=== PATIENT | male | born 1980 | race Asian ===

== ENCOUNTER 2024-10-20 08:53 | Outpatient (REF) | payer MEDICAID, OTHER, SELFPAY ==
--- NOTE | ~2024-10-20 | CT_ITS ---
CLINICAL HISTORY: lung nodule CT chest with contrast Comparison: None Findings: The heart is normal size. The visualized thyroid and mediastinum are unremarkable. No consolidation or effusion. There is a calcified granuloma of the left lower lobe. 3.5 mm noncalcified nodule of the left lower lobe series 4, image 109. The visualized upper abdomen is unremarkable. The bones are intact. IMPRESSION: Small left lower lobe pulmonary nodule. Fleischner Society 2017 Guidelines for incidentally detected indeterminate nodules in persons 35 years of age or older. Single Solid Nodules: 5 mm or smaller nodules need no follow-up in low risk, and [address] follow-up is optional in high risk patients. 6-8 mm nodules have optional [address] follow-up in low risk, and 6-[address] follow-up followed by 18-[address] follow-up if no change in high risk patients. 9 mm or larger nodules should consider CT, PET/CT, or biopsy at 3 months regardless of patient risk. Multiple Solid Nodules: 5 mm or smaller nodules need no follow-up in low risk, and [address] follow-up is optional in high risk patients. 6-8 mm nodules need 3-[address] follow-up followed by an optional 18-[address] follow-up regardless of patient risk. 9 mm or larger nodules should consider 3-[address] follow-up. For low risk 18-24 month follow-up is optional, whereas for high risk it is needed. Single Ground Glass Nodules: 5 mm or smaller nodules need no followup 6 mm and larger nodules need CT at 6-12 months to confirm persistence, then CT every 2 years until 5 years Single Subsolid Nodules: 5 mm or smaller nodules need no followup 6 mm and larger nodules need CT at 3-6 months to confirm persistence. If no change and solid component /T/lt;6 mm, then CT every year until 5 years Multiple Ground Glass or Subsolid Nodules: 5 mm or smaller nodules need CT at 3-6 months. If stable, optional CT at 2 and 4 years. 6 mm or larger nodules need CT at 3-6 months. Subsequent management based on most suspicious nodule This document has been electronically signed by: Ayad Farrell MD on 10/20/2024 14:30:15
[2024-10-20] MEDS: iohexoL 350 MG/ML 100 ML INFUS..BTL IV (09:49)
--- OUTSIDE RECORDS SUMMARY | 2024-10-20 09:51 | XMS_ITS | Clinical Summary ---
Author Organization [employer] Address [address] [facility] 7[address] [place] [address] Care Team Providers Care Choker Hooker Name Role Phone Andrés Richter MD Primary Care Prov ider Allergies No known active allergies Medications No known medications Active Problems Problem Noted Date Diagnosed Date Dental caries 08/26/2024 Open fracture of tooth 08/26/2024 Encounter for medical examination to establish c are 08/23/2024 Assessment & Plan (08/23/2024 12:40 PM EST): Last seen by pcp in April on Mobile No hx of hospitalization No er visit on the past year Pmhx: - Pshx: - All:- Meds:- Lung nodule 08/23/2024 Assessment & Plan (08/23/2024 12:41 PM EST): Incidental lung nodule found on ct scan done in [place] 4 months ago, he refers was told was 5mm, no suspucion for cancer was notified, will order a new low dose chest ct scan will be ordered Encounters Date Type Department Care Team Description 09/30/2024 4:00 PM EST Office Visit [facility] MED & PEDS [address], [place] [phone] Chantale Cope MD URI, acute (Primary Dx); COVID-19 09/30/2024 Travel 09/30/2024 Telephone [facility] MEDICINE [address] [place] [address] Andrés Richter MD Nurse Triage 08/27/2024 Telephone [facility] MED & PEDS [address], [place] [phone] Andrés Richter MD 08/26/2024 8:00 AM EST Office Visit [facility] ADULT DENTAL [address] [place] [address] Quintin Alcazar DDS Dental caries (Primary Dx); Open fracture of tooth, sequela 08/25/2024 Orders Only [facility] MED & PEDS [address] [place] [address] Andrés Richter MD Lung nodule (Primary Dx) 08/23/2024 10:45 AM EST Telemedicine [facility] MED & PEDS [address] [place] [address] Andrés Richter MD Encounter for medical examination to establish care (Primary Dx); Lung nodule 08/23/2024 Travel 08/11/2024 Telephone [facility] MED & PEDS [address] [place] [address] Marina Bosch MA chart prep 08/09/2024 8:00 AM EST Office Visit [facility] ADULT DENTAL [address] [place] [address] Herb Manning 08/02/2024 Telephone [facility] MED & PEDS [address] [place] [address] Andrés Richter MD No Show 08/02/2024 Telephone [facility] MED & PEDS [address] [place] [address] Marina Bosch MA 08/02/2024 Travel from Last 3 Months Family History Medical History Relation Name Comments No Known Problems Father Hypertension Mother Cancer Neg Hx Relation Name Status Comments Father Mother Social History Tobacco Use Types Packs/Day Years Used Date Smoking Tobacco: Never Passive Smoke Exposure: Never Smokeless Tobacco: Never Tobacco Cessation:Counseling Given: Not Answered Alcohol Use Standard Drinks/Week Comments Never 0 (1 standard drink = 0.6 oz pur e alcohol) Sex and Gender Information Value Date Recorded Sex Assigned at Male 05/13/2024 4:21 PM EDT Legal Sex Male 4:20 PM EDT Gender Identity Male 06/22/2024 3:34 PM EDT Sexual Orientation Straight 06/22/2024 3: 34 PM EDT Last Filed Vital Signs Vital Sign Reading Time Taken Comments Blood Pressure 108/70 09/30/2024 4:18 PM EST Pulse 74 09/30/2024 4:18 PM EST Temperature 36.1 ??C (97 ??F) 09/30/2024 4:18 PM EST Respiratory Rate 20 09/30/2024 4:18 PM EST Oxygen Saturation 99% 09/30/2024 4:18 PM EST Inhaled Oxygen Concentration - - Weight 63.5 kg (140 lb) 09/30/2024 4:18 PM EST Height - - Body Mass Index - - Plan of Treatment Health Maintenance Due Date Last Done Comments Depression Screening 1981 HIV Screening 1981 Lipid Panel 1981 SDOH Screening 1981 Alcohol/Substance Use Screening 1993 Family Planning (PISQ) 1996 Hepatitis C Screening 1999 DTaP/Tdap/Td Vaccines (1 - Tdap) 2000 Hepatitis B Vaccines (1 of 3 - 19+ 3-dose series) 2000 COVID-19 Vaccine ( - 2023-2 5 season) 2024 Influenza Vaccine (#1) 2024 Dental Oral Exam 01/13/2025 07/15/2024 Dental Prophylaxis 02/08/2025 08/09/2024 Dental X-Ray: Bitewings 07/16/2025 07/15/2024 Tobacco Screening 09/30/2025 09/30/2024 Dental X-Ray: Full Mouth 07/16/2027 07/15/2024 Zoster Vaccines (1 of 2) 2031 RSV Patients and Pa tients Aged 60 years or older (1 - 1-dose 75+ series) 2056 HIB Vaccines Aged Out No longer eligi ble based on patient's age to complete this topic HPV Vaccines Aged Out No longer eligi ble based on patient's age to complete this topic Hepatitis A Vaccines Aged Out No long er eligible based on patient's age to complete this topic IPV Vaccines Aged Out No longer eligi ble based on patient's age to complete this topic Meningococcal Vaccine Aged Out No lupillo maria teresa eligible based on patient's age to complete this topic Pneumococcal Vaccine: Pediat rics (0 to 5 Years) and At-Risk Patients (6 to 49) Years) Aged Out No longer elig ible based on patient's age to complete this topic RSV under 20 months Aged Out No longe r eligible based on patient's age to complete this topic Rotavirus Vaccines Aged Out No longer eligible based on patient's age to complete this topic Procedures Procedure Name Priority Date/Time Associated Diagnosis Comments POCT INFLUENZA B Routine 09/30/2024 4:38 PM EST URI, acute POCT INFLUENZA A Routine 09/30/2024 4:37 PM EST URI, acute POCT RAPID COVID ANTIGEN Routine 09/30/2024 4:37 PM EST URI, acute [employer] GENERAL SERVICES - PROFESSIONAL VISITS - CASE PRESENTATION, SUBSEQUENT TO DETAILED AND EXTENSIVE TREATMENT PLANNING Routine 08/26/2024 8:00 AM EST 16 EXTRACTION, ERUPTED TOOTH OR EXPOSED ROOT (ELEVATION AND/OR FORCEPS REMOVAL) Routine 08/26/2024 8:00 AM EST PROPHYLAXIS - ADULT Routine 08/09/2024 8 :00 AM EST DIAGNOSTIC - DIAGNOSTIC IMAGING - INTRAORAL - COMPREHENSIVE SERIES OF RADIOGRAPHIC IMAGES Routine 07/15/2024 8:00 AM EST COMPREHENSIVE ORAL EVALUATION - NEW OR ESTABLISHED PATIENT Routine 07/15/2024 8:00 AM EST from Last 3 Months or Most Recently Relevant to Health Maintenance Results * POCT Rapid Influenza B OSOM (09/30/2024 4:38 PM EST) Pathologist [facility] Rapid Influenza B Ag Negative Negative, Indeterminate Swab 09/30/2024 4:38 PM EST Chantale Cope MD POINT OF CARE TEST ENTER/EDIT ORDERABLES Final Result * (ABNORMAL) POCT Rapid Covid-19 BinaxNOW (09/30/2024 4:37 PM EST) Rapid COVID Ag Positive Comment:internal contols pas sed QC Media Lot # [id number] Lot# Expiration Date [id number] Swab 09/30/2024 4:37 PM EST Chantale Cope MD POINT OF CARE TEST ENTER/EDIT ORDERABLES Final Result * POCT Rapid Influenza A OSOM (09/30/2024 4:37 PM EST) Rapid Influenza A Ag Negative Negative, Indeterminate Swab Nasopharyngeal structure / Unknown 09/30/2024 4:37 PM EST Chantale Cope MD POINT OF CARE TEST ENTER/EDIT ORDERABLES Final Result from Last 3 Months Insurance [facility] LIMITED HSN FULL DENTAL-[facility] MEDICAID LIMITED ADULT DENTAL - HSN FULL (MEDICAID) Care Teams Choker Hooker Relationship Specialty Start Date End Date Andrés Richter MD [address] [place] [phone] PCP - General Internal Medicine 08/24/24
--- OUTSIDE RECORDS SUMMARY | 2024-10-20 09:51 | XMS_ITS | Encounter Summary ---
Author Organization [employer] Address [address] [facility] [address] [place] [address] Care Team Providers Care Machine Molder Name Role Phone Andrés Richter MD Primary Care Prov ider Reason for Visit * Reason Onset Date Comments Nurse Triage 09/30/2024 Encounter Details Date Type Department Care Team (Late st Contact Info) Description 09/30/2024 Telephone [facility] MEDICINE [address] [place] [address] Andrés Richter MD [address] [place], [place] [phone] Nurse Triage Social History Tobacco Use Types Packs/Day Years Used Date Smoking Tobacco: Never Passive Smoke Exposure: Never Smokeless Tobacco: Never Alcohol Use Standard Drinks/Week Comments Never 0 (1 standard drink = 0.6 oz pur e alcohol) Sex and Gender Information Value Date Recorded Sex Assigned at Male 05/13/2024 4:21 PM EDT Legal Sex Male 4:20 PM EDT Gender Identity Male 06/22/2024 3:34 PM EDT Sexual Orientation Straight 06/22/2024 3: 34 PM EDT documented as of this encounter Miscellaneous Notes * Telephone Encounter - Judith SantosYONAS yun - 09/30/2024 9:09 AM EST Triage call returned to patient Daughter with LIBRADO Bullock [phone]. Patient with onset of illness on Friday last week. Has lots of phlegm cough headache and weakness. Is Afebrile and is taking fluids per Daughter. Patient with generalized body pain per Daughter. Patient not present at time of triage. Disposition reviewed and Daughter in agreement with plan. ASK/ today at 4pm. Daughter will need link assembler services thru BLS as per this call. Protocol Used: Common Cold (Adult) Protocol-Based Disposition: See in Office or Video Visit Today or Tomorrow Video visit not offered Positive Triage Question: * Patient wants to be seen * All higher-acuity triage questions were negative Care Advice Discussed: * Reasons To Call Back - You become short of breath - You become worse * Telephone Encounter - Jessika Hope - 09/30/2024 8:54 AM EST Symptom: Pain - Severe Outcome: Schedule an urgent appointment (within 1 hour) or talk to a nurse or provider soon Reason: Caller denied all higher acuity questions The caller accepted this outcome. [phone] documented in this encounter Plan of Treatment Not on file documented as of this encounter Visit Diagnoses Not on filedocumented in this encounter Care Teams Machine Molder Relationship Specialty Start Date End Date Andrés Richter MD [address] [place] [id number] PCP - General Internal Medicine 08/24/24 documented as of this encounter
--- OUTSIDE RECORDS SUMMARY | 2024-10-20 09:51 | XMS_ITS | Encounter Summary ---
Author Organization [employer] Address [address] [facility] [address]t [place] [address] Care Team Providers Care Healthcare Economics Manager Name Role Phone Andrés Richter MD Primary Care Prov ider Encounter Details Date Type Department Care Team ([facility] Contact Info) Description 09/30/2024 4:00 PM EST Office Visit [facility] MED & PEDS [address] [place], [place] [phone] Chantale Cope MD [address] [place] [address] URI, acute (Primary Dx); COVID-19 Social History Tobacco Use Types Packs/Day Years [...] PM EDT documented as of this encounter Last Filed Vital Signs Vital Sign Reading [...] - - Body Mass Index - - documented in this encounter Progress Notes * Pauline Martin MA - 09/30/2024 4:00 PM EST 102 * Chantale Cope MD - 09/30/2024 4:00 PM EST Subjective Patient ID: Telma Pabon is a 44 y.o. male who presents for URI complaints. Mr. Pabon is a 44-year-old male patient here with his daughter because of 5 days of upper respiratory symptoms including general fatigue body aches and mild headache and runny nose. No recent travel. Has been taking Tylenol as needed. Works at [employer]. Lives in [place]. Has no allergies. Feels better today. Tested negative for COVID at home yesterday. Not vaccinated since last year. Denies shortness of breath. Lost sense of smell and taste. History provided by: Relative yarn cleaner used: No Review of Systems Constitutional: Positive for fatigue. Negative for activity change, chills, fever and unexpected weight change. HENT: Positive for congestion and rhinorrhea. Negative for sinus pressure, sinus pain, sneezing andsore throat. Respiratory: Negative for cough, shortness of breath and wheezing. Cardiovascular: Negative for chest pain, palpitations and leg swelling. Gastrointestinal: Negative for abdominal pain and blood in stool. Endocrine: Negative for polydipsia and polyuria. Genitourinary: Negative for decreased urine volume, difficulty urinating, dysuria and hematuria. Musculoskeletal: Negative for arthralgias and gait problem. Skin: Negative for color change and rash. Neurological: Positive for headaches. Negative for dizziness. Hematological: Negative for adenopathy. Psychiatric/Behavioral: Negative for dysphoric mood, hallucinations, sleep disturbance and suicidalideas. The patient is not nervous/anxious. Objective BP 108/70 (BP Location: Left arm, Patient Position: Sitting, BP Cuff Size: Adult) Pulse74 Temp 97 ??F (36.1 ??C) (Oral) Resp 20 Wt 140 lb (63.5 kg) SpO2 99% Physical Exam Vitals reviewed. Constitutional: General: He is not in acute distress. Appearance: Normal appearance. He is normal weight. He is not ill-appearing. HENT: Head: Normocephalic. Right Ear: Tympanic membrane, ear canal and external ear normal. Left Ear: Tympanic membrane, ear canal and external ear normal. Nose: Congestion present. Mouth/Throat: Mouth: Mucous membranes are moist. Pharynx: Oropharynx is clear. No oropharyngeal exudate. Cardiovascular: Rate and Rhythm: Normal rate and regular rhythm. Heart sounds: Normal heart sounds. No murmur heard. Pulmonary: Effort: No respiratory distress. Breath sounds: Normal breath sounds. No wheezing. Musculoskeletal: Cervical back: Normal range of motion. Lymphadenopathy: Cervical: No cervical adenopathy. Skin: Capillary Refill: Capillary refill takes less than 2 seconds. Neurological: Mental Status: He is alert and oriented to person, place, and time. Mental status is at baseline. Psychiatric: Mood and Affect: Mood normal. Behavior: Behavior normal. Thought Content: Thought content normal. Assessment/Plan Diagnoses and all orders for this visit: URI, acute Comments: Patient was tested for flu COVID and strep today. Tested positive for COVID 19. Works at [employer]. Here with daughter. Orders: - POCT Rapid Covid-19 BinaxNOW - POCT Rapid Influenza A OSOM - POCT Rapid Influenza B OSOM COVID-19 Comments: Rest and lots of fluid intake recommended. Tylenol and NSAIDs as needed. He has no medical history and he is not at high risk patient. Vitals stable. Feels better today already.Paxlovid not given dueto lack of need at this time and improvement already.Continue supportive measures.Letter for work given . documented in this encounter Plan of Treatment Not on file documented as of this encounter Procedures Procedure Name Priority Date/Time Associated Diagnosis Comments POCT INFLUENZA B Routine 09/30/2024 4:38 PM EST URI, acute POCT RAPID COVID ANTIGEN Routine 09/30/2024 4:37 PM EST URI, acute POCT INFLUENZA A Routine 09/30/2024 4:37 PM EST URI, acute documented in this encounter Results * POCT Rapid Influenza B OSOM (09/30/2024 4:38 PM EST) [facility] Rapid Influenza B Ag Negative Negative, Indeterminate Swab 09/30/2024 4:38 PM EST Chantale Cope MD POINT OF CARE TEST ENTER/EDIT ORDERABLES Final Result * POCT Rapid Influenza A OSOM (09/30/2024 4:37 PM EST) [facility] Rapid Influenza A Ag Negative Negative, Indeterminate Swab Nasopharyngeal structure / Unknown 09/30/2024 4:37 PM EST Chantale Cope MD POINT OF CARE TEST ENTER/EDIT ORDERABLES Final Result * (ABNORMAL) POCT Rapid Covid-19 BinaxNOW (09/30/2024 4:37 PM EST) [facility] Rapid COVID Ag Positive Comment:internal contols pas sed QC Media Lot # [id number] Lot# Expiration Date [id number] Swab 09/30/2024 4:37 PM EST Chantale Cope MD POINT OF CARE TEST ENTER/EDIT ORDERABLES Final Result documented in this encounter Visit Diagnoses Diagnosis URI, acute- Primary Acute upper respiratory infections of unspecified site COVID-19 documented in this encounter Care Teams Healthcare Economics Manager Relationship Specialty Start Date End Date Andrés Richter MD [address] [place] [phone] PCP - General Internal Medicine 08/24/24 documented as of this encounter
--- OUTSIDE RECORDS SUMMARY | 2024-10-20 09:51 | XMS_ITS | Encounter Summary ---
Author Organization [employer] Address [address] [place] [address] 7 [place] [address] Care Team Providers Care Chief Privacy Officer Name Role Phone Andrés Richter MD Primary Care Prov ider Encounter Details Date Type Department Care Team (Latest Contact Info) Description 09/30/2024 Travel Social History Tobacco Use Types Packs/Day Years [...] PM EDT documented as of this encounter Plan of Treatment Not on file documented as of this encounter Visit Diagnoses Not on filedocumented in this encounter Care Teams Chief Privacy Officer Relationship Specialty Start Date End Date Andrés Richter MD [address] [place] [phone] PCP - General Internal Medicine 08/24/24 documented as of this encounter
== END 2024-10-20 08:54 | disposition home or self-care (01) ==
LOC: HO.CT 08:53
PROVIDERS: PCP Internal Medicine; Visit Provider Internal Medicine
DX: R91.1 Solitary pulmonary nodule (principal)
CPT/HCPCS: 71260; Q9967

== ENCOUNTER → 2024-10-20 09:07 | Outpatient (BNV) | payer SELFPAY | PROVIDERS: PCP Internal Medicine; Visit Provider Nuclear Medicine | DX: R91.8 Other nonspecific abnormal finding of lung field (principal) | CPT/HCPCS: 71260 ==

== ENCOUNTER 2025-06-02 08:02 | Outpatient (AMB) | payer OTHER, SELFPAY ==
--- NOTE | 2025-06-02 08:04 | AM.OFFWIN_ITS ---
Intake Vital Signs 06/02/25 08:05 Height 5 ft 4.96 in Weight 146 lb BMI 24.3 BP 102/62 Blood Pressure Location Lt brachial Position Sitting Respiration 16 Pulse 74 Pulse Source Pulse Oximeter Temp 98.0 F Temp Source Oral Pulse Oximetry (%) 97 Oxygen Delivery Method Room Air Intake Visit Reasons: ep lower back pain Intake Note: Pt is here today c/o mid lower back pain due to exercising yesterday: made a wrong move tingling sensation bilateral down legs Allergies No Known Allergies Allergy (Verified 06/02/25 08:08) HPI HPI Comments History of Present Illness Details 44 y/o Male patient who presents to the walk in clinic with c/o mid lower back pain due to exercising. Reports that yesterday he was exercising and made a wrong move - states tingling sensation bilateral lower legs. Denies urinary or bowel symptoms. Denies numbness or tingling to the LE. [facility] Medical History (Updated 06/02/25 @ 08:25 by Winifred Martinez NP) Low back pain radiating to both legs Review of Systems Const All systems reviewed & are unremarkable except as noted in HPI and below Physical Exam Vital Signs: Last Vital Signs Temp 98.0 F 06/02/25 08:05 Pulse 74 06/02/25 08:05 Resp 16 06/02/25 08:05 BP 102/62 06/02/25 08:05 Pulse Ox 97 06/02/25 08:05 Oxygen Delivery Method Room Air 06/02/25 08:05 BMI result Body Mass Index 24.3 Const General: no acute distress Nutritional Appearance: well nourished Orientation/consciousness: patient oriented x3 Back/Spine/Pelvis Back: back tenderness Thoracic/Lumbar Spine: pain with thoraco-lumbar ROM, thoraco-lumbar spasm and lumbar spinal tenderness Sacrum: tenderness midline Neuro General: patient oriented x3, gait normal and moves all extremities Psych Speech and movement: Normal speech and movement present Assessment & Plan Assessment & Plan (1) Low back pain radiating to both legs: Code(s): M54.50 - Low back pain, unspecified; M79.604 - Pain in right leg; M79.605 - Pain in left leg Plan: Most likely Muscular strain. Ordered NSAIDs, Flexeril and Lido Patches for pain relief. Rest back - apply Oce/Heat. Medications: New cyclobenzaprine 5 mg PO BEDTIME 14 tabs 0RF M54.50 - Low back pain, unspecified, M79.604 - Pain in right leg, M79.605 - Pain in left leg lidocaine 5% leave on most painful area for up to 12 hrs 1 patch topical DAILY 30 ea 1RF M54.50 - Low back pain, unspecified, M79.604 - Pain in right leg, M79.605 - Pain in left leg ibuprofen 800 mg PO Q8H 30 tabs 0RF M54.50 - Low back pain, unspecified, M79.604 - Pain in right leg, M79.605 - Pain in left leg Coding Level of Care Code New Pt Level 4 (47419) Diagnoses Low back pain radiating to both legs M54.50; M79.604; M79.605 Time Spent (min) 20
[2025-06-02 08:05] VITALS: BP 102/62; PULSE 74; RESP 16; TEMP 36.7; O2SAT 97; BMI 24.3
--- OUTSIDE RECORDS SUMMARY | 2025-06-02 08:08 | XMS_ITS | Clinical Summary ---
Author Organization [employer] Address [address] [place] [address] Care Team Providers Care Shirt Ironer Name Role Phone Andrés Richter MD Primary Care Prov ider Allergies No known active allergies Medications No known medications Active Problems Problem Noted Date Diagnosed Date Dental caries 08/26/2024 Open fracture of tooth 08/26/2024 Encounter for medical examination to establish c are 08/23/2024 Assessment & Plan (08/23/2024 12:40 PM EST): Last seen by pcp in April on No hx of hospitalization No er visit on the past year Pmhx: - Pshx: - All:- Meds:- Lung nodule 08/23/2024 Assessment & Plan (11/19/2024 3:27 PM EDT): Solitary nodule less than 5 mm, does not require further imging evaluation, discussed with patient finding and prognosis Assessment & Plan (08/23/2024 12:41 PM EST): Incidental lung nodule found on ct scan done in [place] 4 months ago, he refers was told was 5mm, no suspucion for cancer was notified, will order a new low dose chest ct scan will be ordered Family History Medical History Relation Name Comments [...] 75 09/30/2024 4:18 PM EST Temperature 36.1 C (97 F) 09/30/2024 4:18 PM EST Respiratory Rate 20 09/30/2024 4:18 PM EST Oxygen Saturation 99% 09/30/2024 4:18 PM EST Inhaled Oxygen Concentration - - Weight 63.5 kg (140 lb) 09/30/2024 4:18 PM EST Height - - Body Mass Index - - Plan of Treatment Health Maintenance Due Date Last Done Comments Depression Screening 1981 HIV Screening 1981 Lipid Panel 1981 SDOH Screening 1981 Disability Screening 1981 Alcohol/Substance Use Screening 1993 Family Planning (PISQ) 1996 HPV Vaccines (1 - Male 3-dos e series) 1996 Hepatitis C Screening 1999 DTaP/Tdap/Td Vaccines (1 - Tdap) 2000 Hepatitis B Vaccines (1 of 3 - 19+ 3-dose series) 2000 Dental Oral Exam 01/13/2025 07/15/2024 Dental Prophylaxis 02/08/2025 08/09/2024 COVID-19 Vaccine (1 - 2023-2 5 season) 2025 Influenza Vaccine (#1) 2025 Dental X-Ray: Bitewings 07/16/2025 07/15/2024 Tobacco Screening [...] patient's age to complete this topic Meningococcal B Vaccine Aged Out No l onger eligible based on patient's age to complete this topic Meningococcal Vaccine Aged Out No lupillo maria teresa eligible based on patient's age to complete this topic Pneumococcal Vaccine: Pediat rics (0 to 5 Years) and At-Risk Patients (6 to 49) Years Aged Out No longer eligi ble based on patient's age to complete this topic RSV under 20 months Aged Out No longe r eligible based on patient's age to complete this topic Rotavirus Vaccines Aged Out No longer eligible based on patient's age to complete this topic Procedures Procedure Name Priority Date/Time Associated Diagnosis Comments PROPHYLAXIS - ADULT Routine 08/09/2024 8 :00 AM EST INTRAORAL - COMPLETE SERIES OF RADIOGRAPHIC IMAGES Routine 07/15/2024 8:00 AM EST COMPREHENSIVE ORAL EVALUATION - NEW OR ESTABLISHED PATIENT Routine 07/15/2024 8:00 AM EST from Last 3 Months or Most Recently Relevant to Health Maintenance Insurance [facility] FULL DENTAL-[place] ADULT DENTAL - [facility] FULL (MEDICAID) Care Teams Shirt Ironer Relationship Specialty Start Date End Date Andrés Richter MD [address] [place] [id number] PCP - General Internal Medicine 08/24/24
--- OUTSIDE RECORDS SUMMARY | 2025-06-02 08:08 | XMS_ITS | Encounter Summary ---
Author Organization [employer] Address [address] [place] [address] [address] [place] [address] Care Team Providers Care Internal Communications Writer Name Role Phone Andrés Richter MD Primary Care Prov ider Encounter Details Date Type Department Care Team ([facility] st Contact Info) Description 10/21/2024 Orders Only [facility] [address] [place], [place] [phone] Andrés Richter MD [address] [place] [address] Social History Tobacco Use Types Packs/Day Years [...] on filedocumented in this encounter Care Teams Internal Communications Writer Relationship Specialty Start Date End Date Andrés Richter MD [address] [place] [phone] PCP - General Internal Medicine 08/24/24 documented as of this encounter
== END 2025-06-02 08:31 | disposition home or self-care (01) ==
PROVIDERS: PCP Internal Medicine; Visit Provider Nurse Practitioner Family
DX: M54.50 Low back pain, unspecified (principal); M79.604 Pain in right leg; M79.605 Pain in left leg

== ENCOUNTER → 2025-06-02 08:02 | Outpatient (BNVA) | payer OTHER, SELFPAY | PROVIDERS: PCP Internal Medicine; Visit Provider Nurse Practitioner Family | DX: M54.50 Low back pain, unspecified (principal); M79.604 Pain in right leg; M79.605 Pain in left leg | CPT/HCPCS: 99202 ==